=== PATIENT | male | born 1980 | race African-American/Black ===

== ENCOUNTER 2024-05-24 12:55 | Emergency (ER) | payer BC, SELFPAY | END 2024-05-24 13:33 | disposition home or self-care (01) | LOC: BURERS 12:55 | DX: B35.4 Tinea corporis (principal); B35.9 Dermatophytosis, unspecified; E11.9 Type 2 diabetes mellitus without complications; I10 Essential (primary) hypertension | CPT/HCPCS: 36416; 99283 ==